=== PATIENT | male | born 2005 | race Caucasian/White ===

== ENCOUNTER 2023-07-14 11:52 | Emergency (ER) | payer OTHER, SELFPAY ==
[2023-07-14 12:04] VITALS: BP 116/67; PULSE 110; RESP 18; TEMP 37.1; O2SAT 98
--- NOTE | 2023-07-14 12:13 | ED_ITS ---
HPI - General Adult General Chief complaint: Extremity Pain/Injury, Upper Stated complaint: R wrist pain, intermittent shortness of breath Time Seen by Provider: 07/14/23 12:06 History of Present Illness HPI narrative: R wrist pain, has had in the past and just stretches out, today pain worse. states body tenses up a lot. for 1 month problems with losing breath for seconds at random times. states it is very scary. saw an emt on campus an hour ago for wrist pain. student at [employer] 18-year-old young man presenting to the emergency department with a number of concerns. Over the last month or probably longer has been having episodes where he seems to tense up. He may just stare as reported to him. No history of seizures in him or family. No postictal state described. These last very briefly. He feels like he is losing breath sometimes with these episodes. M ight be breathing fast. Today felt that things tensed up and he began cramping as he describes a hyperflexion I think of his right wrist in particular causing pain. During exercise would not describe any exercise intolerance. Is not having discrete episodes of chest pain. Was evaluated by medical staff of some form on campus. Has not really been having headaches. No substances. No family or personal history of seizure disorder. Related Data Home Medications Medication Instructions Recorded Confirmed hydroxyzine 07/14/23 Allergies Allergy/AdvReac Type Severity Reaction Status Date / Time Penicillins Allergy Unknown Verified 07/14/23 12:10 Review of Systems Status of ROS: Reports: 6 or more systems reviewed and unremarkable except as noted in History and below Exam Narrative: Exam Narrative: Pleasant. Well-nourished. NAD. Mildly anxious. Breathing easily. Skin is warm and dry without swelling or erythema. Has full range of motion throughout. There is a little tenderness to palpation of the mid dorsum of the right wrist. No indication of injury. Cranial nerves 2-12 intact. Pupils are equal at 3-4 mm. Briskly reactive and accommodating. Moving extremities fluidly. Well- perfused without edema. Heart in elevated rate but a regular rhythm without murmur rub or gallop. Oropharynx is moist. Trachea midline. There is no stridor. Lungs are clear. Throughout most of my time with Mr. Jackson, he is worrying his right wrist, rubbing it, flexing it. Const: Vital Signs, click to edit/add: Vital Signs - 24 hr 07/14/23 12:04 Temperature 98.8 F Pulse Rate [Right Pulse Oximeter] 110 H Respiratory Rate 18 Blood Pressure [Ri ght Upper Arm] 116/67 Pulse Oximetry 98 Oxygen Delivery Me thod Room Air Documenting provider has reviewed patient's vital signs: yes Course Vital Signs Vital signs: Initial Vital Signs Temperature 98.8 F 07/14/23 12:04 Temperature Source Temporal Artery Scan 07/14/23 12:04 Pulse Rate 110 H 07/14/23 12:04 Respiratory Rate 18 07/14/23 12:04 Blood Pressure 116/67 07/14/23 12:04 Blood Pressure Mean 83 07/14/23 12:04 Blood Pressure Position Sitting 07/14/23 12:04 Pulse Oximetry 98 07/14/23 12:04 Oxygen Delivery Method Room Air 07/14/23 12:04 Vital Signs Temperature 98.8 F 07/14/23 12:04 Pulse Rate 110 H 07/14/23 12:04 Respiratory Rate 18 07/14/23 12:04 Blood Pressure 116/67 07/14/23 12:04 Pulse Oximetry 98 07/14/23 12:04 Oxygen Delivery Method Room Air 07/14/23 12:04 Temperature 98.8 F 07/14/23 12:04 Pulse Rate 110 H 07/14/23 12:04 Respiratory Rate 18 07/14/23 12:04 Blood Pressure 116/67 07/14/23 12:04 Pulse Oximetry 98 07/14/23 12:04 Oxygen Delivery Method Room Air 07/14/23 12:04 Medical Decision Making MDM Narrative Medical decision making narrative: These do seem to be episodes of anxiety/panic. Differential may also include seizure like absence, possibly pseudoseizures; unlikely true seizures especially without postictal state as describe. Arrhythmia? Atypical migraines? Initial conversation actually involved whether not he wanted to be seen. Did consult with his mother over the phone and appears to be wanting limited evaluation when I return to inquire. I think related to conversation with mother does feel that this is likely related to anxiety. Asked whether I felt imaging of the wrist was further necessary. Does not appear to have any dysfunction or significant pain at this time and I would think that could be deferred. Seems to be describing some rectal passage bleeding as well which can be deferred to primary care evaluation See patient discharge plan Discharge Plan Discharge Clinical Impression: Staring episodes, Anxiety, Bright red blood per rectum, Sprain of right wrist Patient Disposition: Home, Self-Care Condition: Improved Additional Instructions: I understand that you do not want any further workup here today; I can respect that. I think it might be helpful to establish primary care here locally to investigate your concerns further. Be sure to stay well-hydrated drinking between 2-3 L of water a day. Eat plenty of vegetables and fruits. You might want to supplement with MiraLax equivalent to maintain soft stools. Try to avoid worrying your hand/wrist and reassess in 24 hours. Might need to wrap it up to leave it alone? Activity Level: No Restrictions Discharge Diet: Regular Prescriptions: No Action hydroxyzine Stand Alone Forms: [employer] Info Instructions
== END 2023-07-14 13:42 | disposition home or self-care (01) ==
PROVIDERS: Emergency Provider Family Medicine
DX: S63.501A Unspecified sprain of right wrist, initial encounter (principal); K62.5 Hemorrhage of anus and rectum; F41.9 Anxiety disorder, unspecified
CPT/HCPCS: 99284

== ENCOUNTER 2023-11-27 01:41 | Outpatient (CLI) | payer OTHER, SELFPAY | END 2023-11-27 01:42 | disposition home or self-care (01) | LOC: AMB 11-28 11:43 | PROVIDERS: Visit Provider Student in an Organized Health Care Education/Training Program | DX: T78.1XXA Other adverse food reactions, not elsewhere classified, initial encounter (principal) | CPT/HCPCS: A0998 ==